=== PATIENT | male | born 1970 | race Caucasian/White ===

== ENCOUNTER 2017-09-21 21:08 | Emergency (ER) | payer OTHER ==
[2017-09-21 21:29] VITALS: BP 143/92
[2017-09-21] MEDS ORDERED: Clindamycin CAP* 150 MG PO ONE (21:37)
--- NOTE | 2017-09-21 21:40 | UC ---
Dental HPI - HPI Summary HPI Summary: C/O left upper dental cheek pain. Started on Penicillin x 5 days, but not getting better. - History of Current Complaint Chief Complaint: UCDentalProblem Stated Complaint: DENTAL PAIN Time Seen by Provider: 09/21/17 21:31 Hx Obtained From: Patient Onset/Duration: Gradual Onset, Lasting Days - 5 Severity: Moderate Pain Intensity: 5 Aggravating Factor(s): Nothing Alleviating Factor(s): Nothing Related History: Previous Dental Care on Same Tooth - Allergies/Home Medications Allergies/Adverse Reactions: Allergies Allergy/AdvReac Type Severity Reaction Status Date / Time No Known Allergies Allergy Verified 09/21/17 21:28 Home Medications: Home Medications FLUoxetine CAP* [Prozac CAP*] 20 mg PO DAILY 09/21/17 [History Confirmed ] PMH/Surg Hx/FS Hx/Imm Hx Cardiovascular History: Hypertension - Surgical History Surgical History: Yes Surgery Procedure, Year, and Place: PilOnidal Cystectomies- NOT DONE AT [facility] – [place]. RIGHT LOWER ARM- 1 FINGER THAT WAS AMPUTATED. NOSE FRACTURE- RESET - Family History Known Family History: Positive: Cardiac Disease, Hypertension, Diabetes - Social History Occupation: Employed Full-time Lives: With Family Alcohol Use: Occasionally Alcohol Amount: 4 nights a week Substance Use Type: Marijuana Substance Use Comment - Amount & Last Used: few times a week Smoking Status (MU): Light Every Day Tobacco Smoker Amount Used/How Often: < 1/2 ppd Have You Smoked in the Last Year: Yes Review of Systems ENT: Dental Pain Is Patient Immunocompromised?: No All Other Systems Reviewed And Are Negative: Yes Physical Exam Triage Information Reviewed: Yes Appearance: Well-Appearing, Well-Nourished, Pain Distress - mild Vital Signs: Initial Vital Signs Temp 97.9 F 09/21/17 21:21 Pulse 101 09/21/17 21:21 Resp 20 09/21/17 21:21 BP 143/92 09/21/17 21:21 Pulse Ox 97 09/21/17 21:21 Vital Signs Reviewed: Yes Eyes: Positive: Conjunctiva Clear ENT: Positive: Pharynx normal, TMs normal Dental: Positive: Percussion Tenderness @ - #12, Abscess @ - #12, extending up the face into the cheek Neck exam: Normal Respiratory Exam: Normal Cardiovascular Exam: Normal Musculoskeletal Exam: Normal Neurological Exam: Normal Psychological Exam: Normal Skin Exam: Normal Dental Complaint Course/Dx - Course Course Of Treatment: Not responding to PenveeK. Will change to clindamycin - Differential Dx/Diagnosis Differential Diagnosis/Dx: Dental Abscess, Fractured Tooth, Peridontic Disease Provider Diagnoses: Dental abscess Discharge - Sign-Out/Discharge Documenting (check all that apply): Discharge/Admit/Transfer - Discharge Plan Condition: Stable Disposition: HOME Prescriptions: Clindamycin HCl 150 mg PO QID #40 capsule Patient Education Materials: Dental Abscess (ED), Clindamycin (By mouth) Referrals: Pankaj Vicente DO [Primary Care Provider] - Additional Instructions: Smoking Cessation Tricks. 1. Cut down by 1 cigarette per day every 2-3 days. Write the number of smokes for that day on the calendar. 2. Identify triggers to smoking: after meals, on the phone, in the car, with coffee, on breaks at work, etc. 3. Formulate a plan with a behavior to replace the smoking. Fireballs in the car , doodle pad on the phone, flavored creamer for the coffee, go for a walk after a meal or on break at work. 4. For stress smokes do deep breathing relaxation. Breath deep in through the nose hold the breath in for a few seconds then breath out slowly through the mouth. - Billing Disposition and Condition Condition: STABLE Disposition: HOME
== END 2017-09-21 21:57 | disposition home or self-care (01) ==
LOC: UCCORT 21:08
DX: K04.7 Periapical abscess without sinus (principal); F17.200 Nicotine dependence, unspecified, uncomplicated
CPT/HCPCS: 99212; A9270-GY; G0463

== ENCOUNTER 2018-08-27 09:49 | Emergency (ER) | payer OTHER ==
[2018-08-27 10:15] VITALS: BP 131/84
--- NOTE | 2018-08-27 11:05 | UC ---
Throat Pain/Nasal Rusty HPI - HPI Summary HPI Summary: Pt with 2-3 weeks progressive sinus congestion. Pt with 3 days left ear pain. + face pressure, PNd. chills initialy, now just fatigue. No rahs. No cough, sob. No abd pain. No n/v/d medications reviewed this visit - History of Current Complaint Chief Complaint: UCGeneralIllness Stated Complaint: SINUS CONGESTION,EAR CONCERN Time Seen by Provider: 08/27/18 10:44 Hx Obtained From: Patient Pain Intensity: 7 - Allergies/Home Medications Allergies/Adverse Reactions: Allergies Allergy/AdvReac Type Severity Reaction Status Date / Time No Known Allergies Allergy Verified 08/27/18 10:11 PMH/Surg Hx/FS Hx/Imm Hx Previously Healthy: Yes - Surgical History Surgical History: Yes Surgery Procedure, Year, and Place: Pil[place]idal C[place]ectom[place]- [place] [facility] [place]. NOSE FRACTURE- RESET. CTS left hand - Family History Known Family History: Positive: Cardiac Disease, Hypertension, Diabetes, Non- Contributory - Social History Occupation: Employed Full-time Lives: With Family Alcohol Use: Occasionally Alcohol Amount: 5 nights a week Substance Use Type: Marijuana Substance Use Comment - Amount & Last Used: few times a week Smoking Status (MU): Light Every Day Tobacco Smoker Amount Used/How Often: < 1/2 ppd Have You Smoked in the Last Year: Yes Review of Systems All Other Systems Reviewed And Are Negative: Yes Constitutional: Positive: Fatigue ENT: Positive: Ear Ache, Nasal Discharge, Sinus Congestion Respiratory: Positive: Negative Physical Exam - Summary Physical Exam Summary: Vital Signs Reviewed: Yes A+Ox3, no distress Eyes: Conjunctiva Clear, CHRISTOPH. EOM intact and full ENT: Hearing grossly normal Left ear ++ fluid, erythema, buldge, right with scant fluid, turbinates inflammed and boggy, +PND, mmoist, uvula midline, no exudate, no erythema Neck: Positive: Supple Respiratory: Positive: No respiratory distress, No accessory muscle use + CTA throughout no w/r Cardiovascular: RRR nl s1, s2 no m/r CBT <2 sec abd soft + BS nt/nd no guarding, no distension Musculoskeletal Exam: MOORE x 4 without difficulty Strength Intact, ROM Intact Neurological: Positive: Alert, + sensation throughout Psychological: Positive: Normal Response To Family Skin: Positive: no rash, no ecchymosis Vital Signs: Initial Vital Signs Temp 98.6 F 08/27/18 10:12 Pulse 82 08/27/18 10:12 Resp 15 08/27/18 10:12 BP 131/84 08/27/18 10:12 Pulse Ox 98 08/27/18 10:12 Throat Pain/Nasal Course/Dx - Course Course Of Treatment: Pt with 2-3 days progressive sinus congestion, left ear pressure VSS + PND, turbinates inflammed and boggy left OM motrin/apap abx flonase humidify air - Differential Dx/Diagnosis Provider Diagnosis: Left otitis media, Sinusitis Discharge - Sign-Out/Discharge Documenting (check all that apply): Patient Departure All imaging exams completed and their final reports reviewed: No Studies - Discharge Plan Condition: Stable Disposition: HOME Prescriptions: Amoxicillin PO (*) [Amoxicillin 875 MG (*)] 875 mg PO BID #20 tab Fluticasone NASAL SPRAY 50MCG* [Flonase NASAL SPRAY 50MCG*] 2 spray BOTH NARES DAILY #1 btl Patient Education Materials: Ear Infection (ED), Rhinosinusitis (ED) Referrals: Pankaj Vicente DO [Primary Care Provider] - Additional Instructions: - Stay well hydrated. Drink plenty of non-alcoholic, non-caffinated beverages. - Alternate ibuprofen (Advil, Motrin) 600mg and Tylenol every 3 hours for pain or fever. Take with food. Do NOT take for more than 4-5 days. - These infections are spread by secretions - do NOT share eating or drinking utensils - clean items you share with other people such as cell phones, computer mouse, TV remote, computer tablets,etc. Once you have been on antibiotics for 2 days, change your toothbrush and your pillowcase. - get plenty of restful sleep - humidify the air in the room where you sleep - boil water, run a hot steam shower, vaporizer, cups of water by heat register - okay to take over the counter decongestant - consider taking Claritin daily to help with congestion - it is recommended you take your nasal spray as prescribed - contact your doctor or return with questions or concerns - Billing Disposition and Condition Condition: STABLE Disposition: Home
== END 2018-08-27 11:11 | disposition home or self-care (01) ==
LOC: UCCORT 09:49
DX: J32.9 Chronic sinusitis, unspecified (principal); H66.92 Otitis media, unspecified, left ear; F17.220 Nicotine dependence, chewing tobacco, uncomplicated
CPT/HCPCS: 99212; G0463